=== PATIENT | female | born 1940 | race Caucasian/White ===

== ENCOUNTER → 2017-01-30 | Outpatient (CLI) | payer OTHER, BC ==
[~2017-01-30] MED LIST: ACETAMINOPHEN1 EAC2 PO; ACID CONTROL20 MG PO; ADVAIR HFA115 MCG/21 INH; AMBIEN 5 MG TABL5 M1 PO; ANCEF 1GM1 GM/50 M1 IVPB; ARAVA20 MG PO; ASPIR-LOW81 MG PO; AVINZA PO; B COMPLEX-VITA1 EACH PO; BACTRIM DS TAB1 EACH PO; CALCIUM 500 +1 EAC5 PO; CALCIUM 600 +1 EAC1 PO; CARVEDILOL3.125 MG PO; COLACE100 MG PO; CORAL CALCIUM1 EAC2 PO; CORAL CALCIUM1 EACH PO; CORAL CALCIUM1 GM PO; COUMADIN 1MG TAB1 M1 PO; CYMBALTA20 MG PO; DAPTOMYCIN IV; DICLOFENAC SODI25 MG PO; DICLOFENAC SODI75 M1 PO; DULCOLAX5 MG PO; DUONEB 2.5-0.5 M3 ML INH; ESTER-C 1,0001 EACH PO; FLONASE 0.05%50 MCG NASAL; FOLIC ACID0.4 MG PO; FOLIC ACID1 MG PO; HYDROCODON-ACE1 EAC5 PO; HYDROXYCHLOROQ200 M1 PO; IRON325 PO; K-DUR 20 MEQ T20 MEQ PO; LISINOPRIL2.5 MG PO; LORTAB 7.5-3251 EACH PO; MELATONIN1 MG PO; METHOTREXATE 22.5 M1 PO; MILK THISTLE1 GM PO; MILK THISTLE200 M1 PO; MORPHINE SULFAT30 M1 PO; MUCINEX TA600 MG/TA2 PO; MULTI VITAMIN1 EACH PO; MULTIVITAMINS1 EAC7 PO; NORCO 7.5-3251 EACH PO; OMEGA 3 1,0001 EACH PO; OMEPRAZOLE40 MG PO; ONE DAILY1 EAC2 PO; PEPCID AC20 MG PO; PEPCID40 MG PO; PHENTERMINE HCL30 MG PO; PREDNISONE 10 M10 MG PO; PREDNISONE 20 M20 MG PO; PREDNISONE 5 MG5 M1 PO; PRESERVISION L1 EACH; PRESERVISION L1 EACH PO; PRILOSEC 20 MG20 MG PO; PROBIOTIC1 EAC1 PO; PROLIA60 MG/1 ML; PROLIA60 MG/1 ML SUBQ; PROMETHEGAN25 MG RC; REMICADE 1100 MG/VIA; SALINE MIST45 ML NS; SENNA PO; SENOKOT-S1 TA1 PO; SUPRENZA ODT30 MG PO; TRAZODONE 150150 M1 PO; TRAZODONE HCL100 MG PO; TUDORZA PRESS400 MCG IH; TUMS PO; TYLENOL325 MG PO; VENTOLIN HFA 1818 GM INH; VITAMIN D31000 UNI2 PO; VITAMINC500 PO; [UNRECOGNIZED DRUG - OTHER] PO; [UNRECOGNIZED DRUG - OTHER] PO
== END ==
LOC: MRI 11:03
DX: M06.9 Rheumatoid arthritis, unspecified (principal); Z89.429 Acquired absence of other toe(s), unspecified side

== ENCOUNTER 2017-06-20 17:43 | Observation (INO) | payer OTHER, BC ==
[~2017-06-20] VITALS: Ht 160 cm; Wt 56.7 kg
[~2017-06-20 17:43] MED LIST changes: -XARELTO15 MG PO; -XARELTO20 MG PO
[2017-06-20 17:50] VITALS: BP 136/68
[2017-06-20 19:34] LABS: ABSOLUTE NEUTROPHILS 4.9 thou/uL (1.4-8.2); BASOPHILS 0.8 % (0.0-2.0); EOSINOPHILS 0.9 % (0.0-3.0); HEMATOCRIT 38.8 % (37.0-47.0); HEMOGLOBIN 12.8 gm/dL (12.0-15.0); LYMPHOCYTES 21.5 % (24.0-44.0); MCH 32.4 pg (26.0-34.0); MCHC 32.8 g/dL (28.0-37.0); MCV 98.6 fL (80.0-100.0); MONOCYTES 6.9 % (1.0-8.0); PLATELET COUNT 156 thou/uL (150-400); POLYS 69.9 % (36.0-66.0); RBC 3.94 mil/uL (4.20-5.00); RDW 15.1 % (10.5-14.5); WBC 7.1 thou/uL (4.0-11.0)
[2017-06-20 19:41] LABS: CALCIUM 8.6 mg/dL (8.5-10.1); CREATININE 0.6 mg/dL (0.6-1.0); MANUAL DIFF NO; POTASSIUM 5.2 mmol/L (3.5-5.1)
[2017-06-20 19:52] LABS: APTT 22.2 Seconds (24.5-32.8)
[2017-06-20 22:43] VITALS: BP 143/65
[2017-06-20 22:49] VITALS: BP 155/87
[2017-06-20 22:56] VITALS: BP 155/87
[2017-06-21 03:50] VITALS: BP 118/50
[2017-06-21 04:28] VITALS: BP 118/50
[2017-06-21 07:20] VITALS: BP 115/72
[2017-06-21] MEDS ORDERED: XARELTO15 MG PO (13:19)
[2017-06-21] MEDS ORDERED: XARELTO20 MG PO (13:21)
[2017-06-21 13:27] VITALS: BP 115/57
== END 2017-06-21 14:25 | disposition home or self-care (01) ==
LOC: ER 17:43 → 4S 21:29 → EROBS 21:29 → 4S 22:38 → ENTRNSPT 06-21 13:34 → EDTRNSPTSTS 06-21 13:44 → 4S 06-21 14:25
PROVIDERS: Emergency Medicine
DX: I82.402 Acute embolism and thrombosis of unspecified deep veins of left lower extremity (principal); M06.9 Rheumatoid arthritis, unspecified; G89.29 Other chronic pain; J44.9 Chronic obstructive pulmonary disease, unspecified; F17.210 Nicotine dependence, cigarettes, uncomplicated; I10 Essential (primary) hypertension; Z98.890 Other specified postprocedural states

== ENCOUNTER → 2017-06-20 | Outpatient (CLI) | payer OTHER, BC ==
[~2017-06-20] MED LIST changes: +XARELTO15 MG PO; +XARELTO20 MG PO
== END ==
LOC: ULTRA 15:47
DX: M79.89 Other specified soft tissue disorders (principal)

== ENCOUNTER → 2018-01-23 | Outpatient (CLI) | payer OTHER, BC ==
[~2018-01-23] MED LIST changes: +XARELTO15 MG PO; +XARELTO20 MG PO
== END ==
LOC: HYPER 01-09 16:39
DX: L89.512 Pressure ulcer of right ankle, stage 2 (principal); M86.8X7 Other osteomyelitis, ankle and foot; L60.3 Nail dystrophy; L84 Corns and callosities; L08.9 Local infection of the skin and subcutaneous tissue, unspecified; K21.9 Gastro-esophageal reflux disease without esophagitis; M79.671 Pain in right foot; M06.371 Rheumatoid nodule, right ankle and foot; M81.0 Age-related osteoporosis without current pathological fracture; J44.9 Chronic obstructive pulmonary disease, unspecified; F17.200 Nicotine dependence, unspecified, uncomplicated; Z96.642 Presence of left artificial hip joint; Z86.718 Personal history of other venous thrombosis and embolism; Z96.653 Presence of artificial knee joint, bilateral

== ENCOUNTER → 2018-02-18 | Outpatient (CLI) | payer OTHER, BC | LOC: HYPER 06:53 | DX: L89.512 Pressure ulcer of right ankle, stage 2 (principal); L60.3 Nail dystrophy; L84 Corns and callosities; M06.371 Rheumatoid nodule, right ankle and foot; L08.9 Local infection of the skin and subcutaneous tissue, unspecified; M06.30 Rheumatoid nodule, unspecified site; M86.8X7 Other osteomyelitis, ankle and foot; I77.1 Stricture of artery; K21.9 Gastro-esophageal reflux disease without esophagitis; J44.9 Chronic obstructive pulmonary disease, unspecified; M81.0 Age-related osteoporosis without current pathological fracture; F17.210 Nicotine dependence, cigarettes, uncomplicated; Z86.718 Personal history of other venous thrombosis and embolism; Z89.422 Acquired absence of other left toe(s) ==

== ENCOUNTER → 2018-04-14 | Outpatient (CLI) | payer OTHER, BC | LOC: HYPER 06:55 | DX: M89.512 Osteolysis, left shoulder (principal); M86.8X7 Other osteomyelitis, ankle and foot; L60.3 Nail dystrophy; L84 Corns and callosities; L08.9 Local infection of the skin and subcutaneous tissue, unspecified; M06.371 Rheumatoid nodule, right ankle and foot; M79.671 Pain in right foot; K21.9 Gastro-esophageal reflux disease without esophagitis; M81.0 Age-related osteoporosis without current pathological fracture; J44.9 Chronic obstructive pulmonary disease, unspecified; F17.200 Nicotine dependence, unspecified, uncomplicated; Z86.718 Personal history of other venous thrombosis and embolism; Z96.642 Presence of left artificial hip joint; Z96.653 Presence of artificial knee joint, bilateral ==

== ENCOUNTER → 2018-06-02 | Outpatient (CLI) | payer OTHER, BC | LOC: HYPER 07:09 | DX: L89.512 Pressure ulcer of right ankle, stage 2 (principal); L84 Corns and callosities; M86.9 Osteomyelitis, unspecified; R60.0 Localized edema; K21.9 Gastro-esophageal reflux disease without esophagitis; J44.9 Chronic obstructive pulmonary disease, unspecified; M81.0 Age-related osteoporosis without current pathological fracture; M06.371 Rheumatoid nodule, right ankle and foot; M06.9 Rheumatoid arthritis, unspecified; F17.200 Nicotine dependence, unspecified, uncomplicated; Z96.643 Presence of artificial hip joint, bilateral; Z86.73 Personal history of transient ischemic attack (TIA), and cerebral infarction without residual deficits ==

== ENCOUNTER → 2018-12-30 | Outpatient (CLI) | payer OTHER, BC | LOC: HYPER 12-19 06:46 | DX: L97.522 Non-pressure chronic ulcer of other part of left foot with fat layer exposed (principal); L08.9 Local infection of the skin and subcutaneous tissue, unspecified; L84 Corns and callosities; K21.9 Gastro-esophageal reflux disease without esophagitis; J44.9 Chronic obstructive pulmonary disease, unspecified; M86.9 Osteomyelitis, unspecified; M81.0 Age-related osteoporosis without current pathological fracture; M06.9 Rheumatoid arthritis, unspecified; F17.200 Nicotine dependence, unspecified, uncomplicated; Z96.642 Presence of left artificial hip joint; Z86.718 Personal history of other venous thrombosis and embolism ==

== ENCOUNTER 2019-01-19 06:36 | Inpatient (IN) | payer OTHER, BC ==
[~2019-01-19] VITALS: Ht 160 cm; Wt 52.6 kg
[2019-01-19 13:46] LABS: HEMOGLOBIN 11.6 gm/dL (12.0-15.0); MCH 24.9 pg (26.0-34.0); MCHC 31.3 g/dL (28.0-37.0); MCV 79.8 fL (80.0-100.0); RBC 4.64 mil/uL (4.20-5.00); RDW 18.4 % (10.5-14.5); WBC 6.3 thou/uL (4.0-11.0)
[2019-01-19 13:56] LABS: CREATININE 0.6 mg/dL (0.6-1.0); POTASSIUM 3.8 mmol/L (3.5-5.1)
[2019-01-19 14:01] LABS: ALBUMIN 3.2 g/dL (3.4-5.0); TOTAL BILIRUBIN 0.3 mg/dL (<0.1-1.0); TOTAL PROTEIN 7.7 g/dL (6.4-8.2)
[2019-01-19] MEDS ORDERED: NORCO 10-325 T1 EACH PO (14:05)
[2019-01-19] MEDS ORDERED: MORPHINE SULFAT20 M1 PO (14:07)
[2019-01-19] MEDS ORDERED: TRAZODONE HCL100 MG PO (14:08)
[2019-01-19] MEDS ORDERED: CARVEDILOL3.125 MG (14:09)
[2019-01-19] MEDS ORDERED: PREDNISONE 5 MG5 M1 PO (14:11)
[2019-01-19] MEDS ORDERED: LEFLUNOMIDE20 MG PO (14:13)
[2019-01-19] MEDS ORDERED: HYDROXYCHLOROQ200 M1 PO (14:14)
[2019-01-19] MEDS ORDERED: SULFASALAZINE500 M5 PO (14:15)
[2019-01-19] MEDS ORDERED: TUDORZA PRESS400 MCG INH (14:18)
[2019-01-19] MEDS ORDERED: CILOSTAZOL 100100 M1 PO (14:20)
[2019-01-19] MEDS ORDERED: PENICILLIN VK500 MG (14:20)
[2019-01-19] MEDS ORDERED: ACID REDUCER20 M1 (14:22)
[2019-01-19] MEDS ORDERED: CALCIUM WITH M1 EACH PO (14:23)
[2019-01-19] MEDS ORDERED: DULCOLAX5 MG (14:25)
[2019-01-19] MEDS ORDERED: PROBIOTIC1 EAC1 (14:25)
[2019-01-19] MEDS ORDERED: PRESERVISION L1 EACH (14:28)
[2019-01-19] MEDS ORDERED: MUCINEX600 MG PO (14:32)
[2019-01-19] MEDS ORDERED: MELATONIN 1 MG1 EACH PO (14:34)
[2019-01-19] MEDS ORDERED: ASPIR-LOW81 MG PO (14:35)
[2019-01-19] MEDS ORDERED: D3 DOTS2000 UNIT PO (14:36)
[2019-01-19 18:01] VITALS: BP 122/49
--- NOTE | 2019-01-19 18:53 | NUR ---
78 YO FEMALE DIRECTLY ADMITTED BY W/C FROM OFFICE. L FOOT HAS CLEANSED IN OFFICE PT WILL NEED IV ANTIBIOTICS. A&OX4, AMBULATES WITH EITHER A CANE OR OWN WALKER. HX OF RA. IV PLACED IN L UPPER ARM BY VASCULAR TEAM. PICS TAKEN OF FOOT. PT ORIENTED TO ROOM/CALL LIGHT.
[2019-01-19 19:18] VITALS: BP 156/77
[2019-01-19 19:27] VITALS: BP 109/52
--- NOTE | 2019-01-20 03:41 | NUR ---
Assumed pt care at 1900,pt is A/OX4,VSS.Pt had questions regarding Morphine order;the paperwork she submitted to ER stated 20mg but pt swore that's not the correct dosage. Vianca LEIVA contacted and did change the Hydrocodone order;pt stated she will f/u with [facility] pharmacy today to get current dosing on the morphine. Pt fall risk score is 75,fall safety education provided. Pt refused to have yellow/band/alarms on stating "I should have lied,tell them to come talk to me I'm a tough one"Pt however agrees to call for assistance before getting OOB.Charge nurse updated regarding the above. Pt was provided with a soft touch call light d/t RA,calling appropriately for help. Resting quietly with no distress noted. Will continue to monitor pt.
[2019-01-20 04:03] VITALS: BP 134/70
[2019-01-20 05:58] LABS: HEMATOCRIT 32.7 % (37.0-47.0); HEMOGLOBIN 10.4 gm/dL (12.0-15.0); MCH 25.4 pg (26.0-34.0); MCHC 31.7 g/dL (28.0-37.0); MCV 80.1 fL (80.0-100.0); RBC 4.08 mil/uL (4.20-5.00); RDW 18.3 % (10.5-14.5); WBC 4.6 thou/uL (4.0-11.0)
[2019-01-20 06:08] LABS: CALCIUM 8.6 mg/dL (8.5-10.1); CREATININE 0.6 mg/dL (0.6-1.0); MAGNESIUM 1.9 mg/dL (1.8-2.4); POTASSIUM 3.9 mmol/L (3.5-5.1)
[2019-01-20 06:09] LABS: APTT 26.6 Seconds (24.5-32.8); PROTIME 10.4 Seconds (9.3-11.4)
--- NOTE | 2019-01-20 10:20 | NUR ---
WOUND CARE CONSULT; ROUNDING TODAY WITH DR ANA DASILVA. A LEFT FOOT WOUND IDENTIFIED TO THE PLANTAR SURFACE. THE WOUND IS PAINFUL TO TOUCH. WOUND BED IS PINK. RECOMMENDATIONS; XEROFORM TO WOUND BED, COVER WITH GAUZE, SECURE WITH KERLIX CHANGE DAILY/PRN. DISCUSSED WITH MECHANICAL TECHNICIAN
--- NOTE | 2019-01-20 13:07 | NUR ---
WOUND CONSULT; ROUNDING WITH DR ANA DASILVA AND CASIE ARMSTRONG BSN RN. NO S/S OF INFECTION TO THE LEFT FOOT. RECOMMENDATIONS; GENTAMYCIN TO WOUND,COVER WITH XEROFORM, KERLIX DAILY/PRN DISCUSSED WITH RN
--- NOTE | 2019-01-20 13:31 | NUR ---
INITIAL ASSESSMENT: Pt evaluated for d/c planning needs. Reviewed chart and spoke with nurse and pt. Pt is alert and oriented. Pt states she lives alone in independent apartment and was independent with ADL's prior to admission to the hospital. Pt has walker, cane and scooter at home. Pt said she is currently on service with [facility]. Contacted [facility] to confirm. Pt plans on returning home on d/c from hospital. Will remain available to assist as needed.
--- NOTE | 2019-01-20 13:42 | NUR ---
WOUND CARE WITH GENTAMYCIN OINTMENT ORDERED AT THIS TIME.
[2019-01-20 15:33] VITALS: BP 147/46
[2019-01-20 19:12] VITALS: BP 131/72
--- NOTE | 2019-01-20 19:32 | NUR ---
PATIENT AT TIMES IS ARGUMENTIVE, STATES THAT PEOPLE ARE MEAN AND DONT LIKE HER. STATES DR ROGERS WHO SHE CALLS PRETTY BOY. IS NOT HER KIND AND SHE TOLD HIM HE COULD NOT BE HER DOCTOR. HER FRIEND AND SHE CALLS HER POWER OF AURELIANO WAS HERE. HE ASKED ME TO CALL [facility] THAT PATIENT WAS ON ANXIETY MED THIS NURSE CALLED AND THEN CALLED DR ROGERS SEE JACOB FOR XANAX AND MS CONTIN ORDERS. PT IS CONFUSED AND FORGETFUL AT TIMES.
--- NOTE | 2019-01-20 23:41 | NUR ---
ASSESSMENT COMPLETED. PT IS ALERT AND ORIENTED. [place]. SOME CONFUSION AND ANXIETY. C/O PAIN TO HELENE ARMS, LEGS AND BACK. PT NOT COMPLIANT WITH CALLING FOR HELP BEFORE GETTING UP. PT ALSO DOES NOT WANT BED ALARM ON. AFEBRILE.L FOOT WITH DRSG INTACT.WILL CONTINUE WITH POC TILL EOS.
[2019-01-21 04:25] VITALS: BP 151/81
--- NOTE | 2019-01-21 08:02 | HC ---
[facility] [place] [address] CONSULTATION Name: FATOUMATA JUNIOR Room #: 417-I ADM IN M.R.#: [id number] Admission: 01/19/19 ������������������ Attend Phys: Shayan Mccoy MD Discharge: ������������������ Date of : 40 Report #: [id number] THIS REPORT FOR: //name// CC: Kane Celis DATE OF SERVICE: 01/20/2019 HISTORY OF PRESENT ILLNESS: This is a 78-year-old female patient with history of rheumatoid arthritis, whom I am familiar with from the outpatient setting. I saw her in the clinic yesterday where she had had an abscess at the base of her fourth MTP. An incision and drainage was performed in the office. She was admitted for further evaluation and treatment. Cultures were obtained and are pending at this time. Past medical history is positive for history of rheumatoid arthritis. She has had multiple toe amputations. She has a significant hallux valgus deformity of the right great toe with a chronic draining sinus tract to the first MTP. The patient is feeling relatively well today, but is complaining of significant diarrhea, requesting Imodium. ALLERGIES: TETANUS IMMUNOGLOBULIN. MEDICATIONS: Include hydrocodone, morphine, trazodone, Coreg, leflunomide, Plaquenil, sulfasalazine, Tudorza, Pressair, penicillin, Pletal, omeprazole, Dulcolax, probiotic, multivitamin, Mucinex, melatonin, aspirin, cholecalciferol. PAST MEDICAL HISTORY: Positive for rheumatoid arthritis, degenerative arthritis, bilateral shoulder replacements, bilateral knee replacements, previous left hip fracture with left hip arthroplasty, cholecystectomy, appendectomy, osteoporosis, multiple debridements and amputations of the toes of the left foot, anemia, COPD. SOCIAL HISTORY: Positive for alcohol on special occasions. She is a current smoker with a [id number]-ggee history. FAMILY HISTORY: Positive for heart disease. REVIEW OF SYSTEMS: CONSTITUTIONAL: The patient denies fever, chills or weight loss. NEUROLOGICAL: The patient denies focal weakness, numbness or tingling. EYES: The patient denies visual changes, redness, or drainage. ENT: The patient denies earache, nasal drainage or sore throat. CARDIOVASCULAR: The patient denies chest pain, palpitations or diaphoresis. PULMONARY: The patient denies cough or shortness of breath. GASTROINTESTINAL: The patient denies nausea, vomiting, diarrhea, abdominal pain. [address] [address] CONSULTATION Name: SANDITORO Room #: 417-I ADM IN ..#: [id number] Admission: 01/19/19 ������������������ Attend Phys: Shayan Mccoy MD Discharge: ������������������ Date of : 40 Report #: [id number] ORTHOPEDIC: The patient does admit of some pain and drainage to her left foot. Other systems in a 14-point review of systems are negative. PHYSICAL EXAMINATION: VITAL SIGNS: At this time include pulse 73, respiratory rate 18, blood pressure 134/70, temperature 98.6. GENERAL: This is a chronically ill-appearing female male patient who appears to be in minimal distress. HEENT: Head is normocephalic. Nose and throat are clear. NECK: Supple. HEART: Regular rhythm, without murmur. ABDOMEN: Soft. Bowel sounds present. EXTREMITIES: Examination of the lower extremities demonstrate palpable distal pulses. She has a small sinus tract at the medial first MTP of the left foot that is not inflamed. There is a little bit of milky type fluid that can be expressed from the sinus tract. There is the ulceration on the plantar aspect of the left foot underneath the fourth MTP. There is a small sinus tract that was a larger area yesterday that is now contracted significantly. There is still a milky bit of fluid there. The ulceration previously at the site of a blister is showing new evidence of epithelization. LABORATORY DATA: Sodium 139, potassium 3.9, chloride 103, CO2 of 29, BUN 13, creatinine 0.6, glucose of 90, calcium is 8.6, magnesium is 1.9. Albumin is 3.2. White blood cell count 4.6 with hemoglobin 10.4, hematocrit 32.7. Sed rate is 50. CRP is 71.3. CT scan of the left lower extremity demonstrates transmetatarsal amputation of the second and third digits, circumferential periosteal reaction involving the distal one third of the first metatarsal concerning for osteomyelitis. There is chronic severe subluxation or dislocation of the proximal phalanx related to the severe hallux valgus. No note of any marrow changes or bony changes were made of the fourth MTP area. CLINICAL IMPRESSION: 1. Ulceration and abscess of the plantar aspect of the left foot. 2. Possible osteomyelitis versus rheumatoid arthritic changes to the left first MTP with chronic draining sinus tract. 3. Chronic obstructive pulmonary disease. 4. Hypertension. 5. Rheumatoid arthritis. 6. Peripheral vascular disease. RECOMMENDATION: At this point in time, cultures are pending at this time. She is on empiric antibiotic therapy. She has requested a dose of Imodium for diarrhea. I will prescribe for her one dose and if additional doses are required, we will have the hospitalist address this concern. It is difficult to discern. I think there is a good chance that there is some degree of osteomyelitis involving the first MTP, although clinically there is very little [address] [address] CONSULTATION Name: FATOUMATA JUNIOR Room #: 417-I ADM IN .R.#: [id number] Admission: 01/19/19 ������������������ Attend Phys: Shayan Mccoy MD Discharge: ������������������ Date of : 40 Report #: [id number] inflammatory change other than the small sinus tract, aggressive therapy would involve surgical intervention and amputation of the first digit. I have discussed this with the patient. She is reluctant to consider doing so, but will consider it. We will plan to discuss further with Dr. Thacker. We will continue with topical care to the plantar aspect of the foot at the fourth MTP region. There is no longer any room for packing as the area has contracted significantly, we will use some topical Xeroform gauze and gentamicin ointment. We will recommend aggressive nutritional support to maximize wound healing. I appreciate being asked to see her and follow her in the hospital. ��������������������������������������������� <ELECTRONICALLY SIGNED> ���������������������������������������� By: Shayan Mccoy MD ��������������������������������������������� 01/21/19 0802 1450 0349 Shayan Mccoy MD /nt
[2019-01-21 09:25] VITALS: BP 138/60
--- NOTE | 2019-01-21 16:27 | NUR ---
WOUND CARE FOLLOW UP; ROUNDING WITH DR ANA DASILVA TODAY. WOUND IS MUCH IMPROVED TODAY. NO NEED TO CHANGE ORDERS. DISCUSSED WITH RN
[2019-01-21 17:00] VITALS: BP 126/56
--- NOTE | 2019-01-21 19:08 | HC ---
[facility] [address] CONSULTATION Name: FATOUMATA JUNIOR Room #: 417-I ADM IN M.R.#: [id number] Admission: 01/19/19 ������������������ Attend Phys: Shayan Mccoy MD Discharge: ������������������ Date of : 40 Report #: [id number] THIS REPORT FOR: //name// CC: Kane Celis DATE OF SERVICE: 01/19/2019 REASON FOR CONSULTATION: I was asked to evaluate concerning the left foot soft tissue abscess and possible osteomyelitis. HISTORY OF PRESENT ILLNESS: A 78-year-old immunosuppressed for rheumatoid arthritis. She has had multiple toe and metatarsal head resections due to rheumatoid disease, chronic ulcerations and osteomyelitis. Over the last several months, she has been managed for a nonhealing wound to the medial aspect of her left first metatarsal. Cultures had revealed Corynebacterium. She has been on penicillin VK for chronic antibiotic suppression. The date of her last culture was on 11/24/2018 which revealed a Corynebacterium. She has had an evaluation by wound care service. Recommendation was for continued offloading and localized wound care. Imaging studies had revealed no bony cortical abnormalities. Over the last week, she has had increased swelling involving the plantar aspect of her left fifth metatarsal region. This was debrided in the outpatient clinic by Dr. Yu for a callus removal. Subsequently, she has developed purulent fluid drainage. This was further debrided by wound care service this morning and she was hospitalized for further IV antibiotic therapy pending cultures. No definite sinus tract to her joint or metatarsal head. No fever, chills or sweats. Has a fair amount of pain to the plantar aspect of her foot. ALLERGIES: TETANUS. DOXYCYCLINE WITH NAUSEA AND VOMITING. MEDICATIONS: As noted on OCT including penicillin VK. PAST MEDICAL HISTORY: Rheumatoid arthritis, osteomyelitis, anemia, gastroesophageal reflux, osteoporosis, COPD, DVT, right shoulder replacement, left total hip arthroplasty and bilateral total knee arthroplasties, cholecystectomy, appendectomy, left hand surgery, left third metatarsal osteomyelitis, status post ray resection, left second toe amputation. FAMILY HISTORY: Noncontributory. SOCIAL HISTORY: Former smoker, no significant alcohol intake. REVIEW OF SYSTEMS: Denies any cardiopulmonary, GI or complaints. [address] [address] CONSULTATION Name: FATOUMATA JUNIOR ANN Room #: 417-I ADM IN M.R.#: [id number] Admission: 01/19/19 ������������������ Attend Phys: Shayan Mccoy MD Discharge: ������������������ Date of : 40 Report #: [id number] neurologic issues. A 10-point review was negative other than what is described above with advanced rheumatoid arthritis. PHYSICAL EXAMINATION: VITAL SIGNS: Afebrile, hemodynamically stable. GENERAL: The patient had advanced rheumatoid arthritis changes in both hands and feet. She was thin. Hard of hearing. HEENT: Eyes, without scleral icterus. Mouth without mucositis. NECK: Supple. LUNGS: Clear. HEART: Regular, without murmur. ABDOMEN: Soft, nontender with no hepatosplenomegaly or mass. EXTREMITIES: With advanced rheumatoid arthritis. Left foot had eschar over a sinus tract medial aspect of her first metatarsal head with advanced displacement of her first digit point lateral. Hammertoe deformities, specifically #4 and #5 toes. There was a fairly large wound with granulation base. Extensive tissue loss in this region. No surrounding cellulitis. LABORATORY STUDIES: CRP 71. Hemoglobin 11, WBC 6.2, platelet count 297,000. ESR pending. CT scan of the foot transmetatarsal amputation of the second and third digits circumferential periosteal reaction involving the distal one third of the first metatarsal, concerning for osteomyelitis. Chronic severe subluxation or dislocation of the proximal phalanx of toe #1 related to severe hallux valgus. IMPRESSION: Soft tissue infection, possible osteomyelitis involving the distal aspect of her forefoot on the left. Also, a chronic sinus tract involving the medial aspect of the left first metatarsal with bony changes on CT scan. I suspect much of this is rheumatoid in nature. Cannot totally exclude infection at this point. RECOMMENDATIONS: We will continue current antibiotic program and wound care. We will await culture results. Switch the penicillin to ceftriaxone empirically. ��������������������������������������������� <ELECTRONICALLY SIGNED> ���������������������������������������� By: Armando Thacker MD ��������������������������������������������� 01/21/19 1908 1621 0325 Armando Thacker MD /nt
[2019-01-21 19:14] VITALS: BP 120/56
--- NOTE | 2019-01-22 03:38 | NUR ---
PATIENT ALERT AND ORIENTED X4. C/O PAIN X1, SCHEDULED MED GIVEN. DRESSING ON L FOOT D/I. SLEPT MOST OF NIGHT.
[2019-01-22 03:42] VITALS: BP 138/55
--- NOTE | 2019-01-22 04:46 | NUR ---
ASSUMED CARE AT 0430, RECEIVED REPORT FROM OFF-GOING NURSE. PT SLEEPING IN BED, VS STABLE, NO CONCERNS. WILL MONITOR UNTIL AM SHIFT CHANGE.
[2019-01-22 07:27] VITALS: BP 130/60
--- NOTE | 2019-01-22 10:34 | NUR ---
ASSUMED CARE OF PT AT 0700. ASSESSMENT CHARTED. A&O,X4. C/O CHRONIC ARTHRITIS PAIN, PAIN MEDS GIVEN ORDERED. PT LEFT IN STABLE CONDITION VIA WHEELCHAIR FOR MRI AT 10:35. WILL WAIT FOR RETURN.
--- NOTE | 2019-01-22 14:16 | NUR ---
WOUND CARE FOLLOW UP; ROUNDING WITH DR ANA DASILVA. FOOT SHOWS SIGNIFICANT HEALING. FRANCOISE DASILVA ISCUSSING PODATRY TO SEE TODAY AND CONSIDERING A TRANSMENT AMPUTATION. PATIENT IS POSITVE. CONT. CURRENT TX DISCUSSED WITH STAFF
[2019-01-22 15:28] VITALS: BP 114/55
[2019-01-22 19:20] VITALS: BP 105/44
[2019-01-23 05:05] VITALS: BP 154/58
[2019-01-23 09:52] VITALS: BP 138/62
--- NOTE | 2019-01-23 12:07 | NUR ---
WOUND CARE FOLLOW UP; WOUND ASSESSMENT REVEAL YELLOW FIBRNOUS AND OTHER NON VIABLE TISSUE IN THE LEFT FOOT METATARSAL AMPUTATION SITE. RECOMMENDATIONS; DR ANA DASILVA ORDERED TO D/C THE VAC AND APPLY 1/4 DAKINS SOAKED GAUZE TO WOUND BED, ABD, KERLIX DAILY/PRN DISCUSSED WITH HAO
[2019-01-23 14:49] VITALS: BP 138/62
--- NOTE | 2019-01-23 15:14 | NUR ---
ALERTED [facility] THaT WE ARE EXPECTING DC TODAY AND HH SERVICES WILL NEED TO BE RESUMED.
[2019-01-23] MEDS ORDERED: CEFDINIR300 MG PO ×2 (17:21→17:25)
[2019-01-23] MEDS ORDERED: GENTAMICIN 0.1%15 G2 TOP (17:21)
[2019-01-23 18:01] VITALS: BP 138/62
--- NOTE | 2019-01-23 19:28 | NUR ---
ASSUMED CARE OF PT AT 0700. ASSESSMENT CHARTED. A&O,X4. SOMETIMES FORGETFUL. C/O CHRONIC SHOULDER PAIN, PAIN MEDS GIVEN ORDERED. DRESSING CHANGE PERFORMED TODAY LEFT TOES. NEW DISCHARGE ORDERS THIS EVENING. NEW SCRIPTS GIVEN TO PT. IV REMOVED PRIOR TO LEAVING. PT GATHERED PERSONAL BELONGINGS INCLUDING PERSONAL WHEELCHAIR. FRIEND AT BEDSIDE TO PICK PATIENT UP AT MEDICAL MALL ENTRANCE. PT LEFT IN STABLE CONDITION VIA WHEECHAIR TRANSPORT AT 18:30. DISCHARGE INSTRUCTIONS/WOUND AND ID FOLLOW UP INFORMATION GIVEN TO PT. STATE NO QUESTION OR CONCERNS.
== END 2019-01-23 18:43 | disposition home health service (06) | DRG 540 ==
LOC: HYPER 06:36 → 4E 11:55 → ENTRNSPT 01-23 18:34 → 4E 01-23 18:43
PROVIDERS: ADMIT Internal Medicine
DX: M86.8X7 Other osteomyelitis, ankle and foot (principal); I51.81 Takotsubo syndrome; E44.0 Moderate protein-calorie malnutrition; L02.612 Cutaneous abscess of left foot; L03.032 Cellulitis of left toe; M06.9 Rheumatoid arthritis, unspecified; K21.9 Gastro-esophageal reflux disease without esophagitis; M81.0 Age-related osteoporosis without current pathological fracture; J44.9 Chronic obstructive pulmonary disease, unspecified; Z96.611 Presence of right artificial shoulder joint; Z96.642 Presence of left artificial hip joint; I73.9 Peripheral vascular disease, unspecified; F17.210 Nicotine dependence, cigarettes, uncomplicated; H35.30 Unspecified macular degeneration; H91.90 Unspecified hearing loss, unspecified ear; Z96.653 Presence of artificial knee joint, bilateral; L97.529 Non-pressure chronic ulcer of other part of left foot with unspecified severity; Z88.7 Allergy status to serum and vaccine; Z88.8 Allergy status to other drugs, medicaments and biological substances; Z86.718 Personal history of other venous thrombosis and embolism; Z90.49 Acquired absence of other specified parts of digestive tract; Z89.422 Acquired absence of other left toe(s); Z82.49 Family history of ischemic heart disease and other diseases of the circulatory system; Z68.20 Body mass index [BMI] 20.0-20.9, adult; Z79.82 Long term (current) use of aspirin; Z79.899 Other long term (current) drug therapy
CPT/HCPCS: 10783

== ENCOUNTER → 2019-01-30 | Outpatient (CLI) | payer OTHER, BC ==
[~2019-01-30] MED LIST changes: +ACID REDUCER20 M1; +CALCIUM WITH M1 EACH PO; +CARVEDILOL3.125 MG; +CEFDINIR300 MG PO; +CILOSTAZOL 100100 M1 PO; +D3 DOTS2000 UNIT PO; +DULCOLAX5 MG; +GENTAMICIN 0.1%15 G2 TOP; +LEFLUNOMIDE20 MG PO; +MELATONIN 1 MG1 EACH PO; +MORPHINE SULFAT20 M1 PO; +MUCINEX600 MG PO; +NORCO 10-325 T1 EACH PO; +PENICILLIN VK500 MG; +PROBIOTIC1 EAC1; +SULFASALAZINE500 M5 PO; +TUDORZA PRESS400 MCG INH
== END ==
LOC: HYPER 08:27
DX: L97.522 Non-pressure chronic ulcer of other part of left foot with fat layer exposed (principal); M86.9 Osteomyelitis, unspecified; L08.9 Local infection of the skin and subcutaneous tissue, unspecified; L84 Corns and callosities; I73.9 Peripheral vascular disease, unspecified; K21.9 Gastro-esophageal reflux disease without esophagitis; M06.9 Rheumatoid arthritis, unspecified; M81.0 Age-related osteoporosis without current pathological fracture; J44.9 Chronic obstructive pulmonary disease, unspecified; Z86.718 Personal history of other venous thrombosis and embolism; F17.200 Nicotine dependence, unspecified, uncomplicated

== ENCOUNTER → 2019-02-11 | Outpatient (CLI) | payer OTHER, BC | LOC: HYPER 06:40 | DX: L97.522 Non-pressure chronic ulcer of other part of left foot with fat layer exposed (principal); S91.001D Unspecified open wound, right ankle, subsequent encounter; L08.9 Local infection of the skin and subcutaneous tissue, unspecified; M86.9 Osteomyelitis, unspecified; L84 Corns and callosities; I77.1 Stricture of artery; K21.9 Gastro-esophageal reflux disease without esophagitis; M81.0 Age-related osteoporosis without current pathological fracture; J44.9 Chronic obstructive pulmonary disease, unspecified; F17.200 Nicotine dependence, unspecified, uncomplicated; Z86.718 Personal history of other venous thrombosis and embolism; X58.XXXD Exposure to other specified factors, subsequent encounter ==

== ENCOUNTER → 2019-03-13 | Outpatient (CLI) | payer OTHER, BC | LOC: HYPER 07:03 | DX: L97.522 Non-pressure chronic ulcer of other part of left foot with fat layer exposed (principal); L08.9 Local infection of the skin and subcutaneous tissue, unspecified; L02.612 Cutaneous abscess of left foot; L84 Corns and callosities; I77.1 Stricture of artery; K21.9 Gastro-esophageal reflux disease without esophagitis; M81.0 Age-related osteoporosis without current pathological fracture; M86.9 Osteomyelitis, unspecified; M06.9 Rheumatoid arthritis, unspecified; J44.9 Chronic obstructive pulmonary disease, unspecified; F17.200 Nicotine dependence, unspecified, uncomplicated; Z86.718 Personal history of other venous thrombosis and embolism ==

== ENCOUNTER → 2019-03-20 | Outpatient (CLI) | payer OTHER, BC | LOC: HYPER 06:49 | DX: L97.522 Non-pressure chronic ulcer of other part of left foot with fat layer exposed (principal); L08.9 Local infection of the skin and subcutaneous tissue, unspecified; L84 Corns and callosities; M86.9 Osteomyelitis, unspecified; K21.9 Gastro-esophageal reflux disease without esophagitis; J44.9 Chronic obstructive pulmonary disease, unspecified; M81.0 Age-related osteoporosis without current pathological fracture; M06.9 Rheumatoid arthritis, unspecified; F17.200 Nicotine dependence, unspecified, uncomplicated; Z86.718 Personal history of other venous thrombosis and embolism; Z96.642 Presence of left artificial hip joint ==

== ENCOUNTER → 2019-03-30 | Outpatient (CLI) | payer OTHER, BC | LOC: HYPER 07:15 | DX: L97.522 Non-pressure chronic ulcer of other part of left foot with fat layer exposed (principal); L08.9 Local infection of the skin and subcutaneous tissue, unspecified; L84 Corns and callosities; I77.1 Stricture of artery; K21.9 Gastro-esophageal reflux disease without esophagitis; M81.0 Age-related osteoporosis without current pathological fracture; M86.9 Osteomyelitis, unspecified; M06.9 Rheumatoid arthritis, unspecified; J44.9 Chronic obstructive pulmonary disease, unspecified; F17.200 Nicotine dependence, unspecified, uncomplicated; Z86.718 Personal history of other venous thrombosis and embolism ==

== ENCOUNTER → 2019-04-15 | Outpatient (CLI) | payer OTHER, BC | LOC: HYPER 07:04 | DX: L97.522 Non-pressure chronic ulcer of other part of left foot with fat layer exposed (principal); L08.9 Local infection of the skin and subcutaneous tissue, unspecified; L84 Corns and callosities; M86.9 Osteomyelitis, unspecified; J44.9 Chronic obstructive pulmonary disease, unspecified; K21.9 Gastro-esophageal reflux disease without esophagitis; M81.0 Age-related osteoporosis without current pathological fracture; M06.9 Rheumatoid arthritis, unspecified; F17.200 Nicotine dependence, unspecified, uncomplicated; Z96.642 Presence of left artificial hip joint ==

== ENCOUNTER → 2019-04-23 | Outpatient (CLI) | payer OTHER, BC | LOC: MRI 08:37 | DX: M86.172 Other acute osteomyelitis, left ankle and foot (principal); L97.522 Non-pressure chronic ulcer of other part of left foot with fat layer exposed; M20.12 Hallux valgus (acquired), left foot; S93.149A Subluxation of metatarsophalangeal joint of unspecified toe(s), initial encounter; X58.XXXA Exposure to other specified factors, initial encounter; Y93.89 Activity, other specified; Y92.89 Other specified places as the place of occurrence of the external cause; Y99.8 Other external cause status ==

== ENCOUNTER → 2019-05-06 | Outpatient (CLI) | payer OTHER, BC ==
[~2019-05-06] MED LIST changes: -ACID REDUCER20 M1; +ACID REDUCER20 M1 PO; +AZATHIOPRINE50 MG PO; -CARVEDILOL3.125 MG; -PROBIOTIC1 EAC1; +STIOLTO RESPIMAT4 GM INH
== END ==
LOC: HYPER 07:02
DX: L97.522 Non-pressure chronic ulcer of other part of left foot with fat layer exposed (principal); L08.9 Local infection of the skin and subcutaneous tissue, unspecified; M86.9 Osteomyelitis, unspecified; L84 Corns and callosities; I77.1 Stricture of artery; K21.9 Gastro-esophageal reflux disease without esophagitis; M81.0 Age-related osteoporosis without current pathological fracture; M06.9 Rheumatoid arthritis, unspecified; J44.9 Chronic obstructive pulmonary disease, unspecified; F17.200 Nicotine dependence, unspecified, uncomplicated; Z86.718 Personal history of other venous thrombosis and embolism

== ENCOUNTER 2019-05-13 06:27 | Inpatient (IN) | payer OTHER, BC ==
[~2019-05-13] VITALS: Ht 160 cm; Wt 50.8 kg
[2019-05-13 07:26] VITALS: BP 132/77
[2019-05-13 13:36] VITALS: BP 117/50
--- NOTE | 2019-05-13 16:05 | NUR ---
ASSESSMENT: CM REVIEWED CHART AND MET WITH PATIENT AT THE BEDSIDE. PT WAS ADMITTED FOR LEFT FOOT 4TH RAY AMPUTATION. PT REPORTS SHE LIVES AT [facility] [address] PT REPORTS THIS IS A FULLY INDEPENDENT APT. PT REPORTS SHE HAS A CANE/WALKER/SCOOTER AT HOME AND REPORTS USING HER SCOOTER ALOT. PT REPORTS HAVING A GRAB BAR AND SHOWER CHAIR. PT STATES THAT SHE IS CURRENTLY IN SERVICES WITH [facility] BUT IS UPSET THAT THEY ARE NOW JOINING WITH [facility] AND IS UNSURE SHE WANTS TO CONTINUE WITH [facility] AT DISCHARGE. PT IS WONDERING IF SHE WILL NEEDE IV ANBX AT DISCHARGE. PT REPORTS SHE DOES NOT DRIVE BUT STATES SHE HAS A FRIEND AT HER [employer] [place] WHO DOES. CM WILL CONTINUE TO FOLLOW TO ASSIST NEEDED. CM VERIFIED WITH [facility] THAT SHE IS CURRENTLY IN SERVICES.
[2019-05-13 16:17] VITALS: BP 139/67
--- NOTE | 2019-05-13 16:35 | NUR ---
Pt came to unit from [facility] approx 1330. A&ox4. Dressing on left foot c/d/i. Pain controlled with prn pain meds. Fall precautions in place. Pt calls appropriately. Will continue to monitor and assist with needs.
[2019-05-13 19:23] VITALS: BP 124/65
[2019-05-14 00:42] VITALS: BP 150/69
--- NOTE | 2019-05-14 01:54 | NUR ---
ASSUMED CARE OF PT @1900 PT ASSESSED AT START OF SHIFT WITH C/O PAIN IN LFT FOOT PAIN MEDS GIVEN ICE PACK IN PLACE AND DRESSING INTACT. FALL PREC IN PLACE AND CALL LIGHT WITHIN REACH WILL CONT WITH POC TILL EOS
[2019-05-14 03:05] VITALS: BP 169/63
[2019-05-14 05:41] LABS: HEMATOCRIT 31.7 % (37.0-47.0); HEMOGLOBIN 9.9 gm/dL (12.0-15.0)
[2019-05-14 06:01] LABS: POTASSIUM 4.9 mmol/L (3.5-5.1)
[2019-05-14 07:30] VITALS: BP 139/67
[2019-05-14 08:12] LABS: CALCIUM 8.7 mg/dL (8.5-10.1); CREATININE 0.6 mg/dL (0.6-1.0)
--- NOTE | 2019-05-14 09:20 | NUR ---
Nutrition: Seen per RD screening d/t findings of wound/infection. Admit: L foot 4th ray amputation with osteomyelitis per EMR. S/p toe amputation surgery 05/13. On a regular diet and ate 85% dinner last night. Reports very gradual wt loss, from 135# (02/2016), 125# (06/2017), to CBW 112# (05/2019). Lowest wt of 108#, thus healthy +4# gain recently. Reports she is doing better, but admits to lower appetite, worsened by summer heat and dislike of food at [facility]. Lots of recent life changes (moved in December, lost son in January). 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 RD recommends eating q 2-3 hrs for smaller more frequent po intake, add cottage cheese to fruit for heightened protein, and continue supplements 1-2x/day. Usually drinks up to 2 Boost a day, agreeable to Ensure BID at lunch and dinner. Low nutrition risk w/ interventions of supplement and education in place, plus recent wt gain trend. Anticipates discharge soon.
--- NOTE | 2019-05-14 14:44 | NUR ---
on-going assessment: CM REVIEWED CHART AND MET WITH PT AT THE BEDSIDE. PT IS TO HAVE HER DRAIN REMOVED TOMORROW. PT WORKED WITH [facility] AND THEY ARE RECOMMENDING HH AT DISCHARGE. CM DISCUSSED THIS WITH PATIENT SHE WAS CURRENT WITH [facility] PRIOR TO ADMISSION BUT STATES SHE WISHES TO CHANGE HH COMPANIES DUE TO STAFFING CHANGES. PT REPORTS SHE WANTS A REFERRAL SENT TO [facility] . CM NOTIFIED [facility] WHO STATES THEY WILL DISCHARGE HER FROM THEIR SERVICES. CM SENT A REFERRAL TO [facility] . CM WILL CONTINUE TO FOLLOW TO ASSIST NEEDED.
[2019-05-14 15:30] VITALS: BP 118/69
--- NOTE | 2019-05-14 16:04 | NUR ---
Assumed pt care at 7am.Pt in bed most of the time today.Assessment completed. vss.Pt was upset early this shift related to not being seen by hospitalist last night after surgery.Service recovery provided.Am meds given with breakfast and well tolerated.Pain med given per pt request after lunch. Complete pain relief noted.Pt ambulated in hallways with casino floorperson.Fair endurance noted.Dr Thacker here,order noted.Piv went bad and new one placed by iv team.Will continue to monitor.
[2019-05-14 21:04] VITALS: BP 139/65
--- NOTE | 2019-05-15 02:20 | NUR ---
ASSESSMENT COMPLETED.PT REF TO TAKE HER STOOL SOFTNERS AT HS.DRGS ON HER L FOOT C/D/I.UP WITH ASSIST X1 AND GAIT BELT TO THE BSC/SURGICAL BOOT.PT ABLE TO MAKE HER NEEDS KNOWN.FALL PRECAUTIONS IN PLACE,CALL LIGHT WITHIN REACH.
[2019-05-15 04:45] VITALS: BP 147/79
[2019-05-15 05:36] LABS: HEMATOCRIT 33.2 % (37.0-47.0); HEMOGLOBIN 10.3 gm/dL (12.0-15.0); MCH 23.8 pg (26.0-34.0); MCHC 31.1 g/dL (28.0-37.0); MCV 76.3 fL (80.0-100.0); RBC 4.35 mil/uL (4.20-5.00); RDW 19.5 % (10.5-14.5)
[2019-05-15 05:37] LABS: CALCIUM 8.7 mg/dL (8.5-10.1); CREATININE 0.5 mg/dL (0.6-1.0); POTASSIUM 4.4 mmol/L (3.5-5.1)
[2019-05-15 07:45] VITALS: BP 146/70
--- NOTE | 2019-05-15 08:02 | O ---
[place] [address] OPERATIVE REPORT Name: FATOUMATA JUNIOR ANN Room #: 420-P [facility] IN M.R.#: [id number] Admission: 05/13/19 ������������������ Attend Phys: Nicholas Lopez MD Discharge: ������������������ Date of : 40 Report #: [id number] THIS REPORT FOR: //name// CC: Kane Lopez DATE OF SERVICE: 05/13/2019 PREOPERATIVE DIAGNOSIS: Left foot fourth metatarsal osteomyelitis. POSTOPERATIVE DIAGNOSIS: Left foot fourth metatarsal osteomyelitis. PROCEDURE: Left foot fourth ray amputation. SURGEON: Dr. Nicholas Lopez. ANESTHESIA: General. ESTIMATED BLOOD LOSS: Minimal. DRAINS: No drains. TOURNIQUET TIME: 30 minutes. DESCRIPTION OF PROCEDURE: The patient was brought to the operating room where she was placed under general anesthesia. Once under adequate general anesthesia, her left lower extremity was prepped and draped in sterile manner. The extremity was elevated and tourniquet placed to 250 mmHg. A racquet shaped incision about the proximal phalanx of the fourth toe was made dissecting sharply down to the fourth metatarsal. Exposure of the metatarsal was then achieved and a sagittal saw was used to transect the metatarsal proximally in the foot, approximately 3 cm of the metatarsal was resected. This was then completely extracted and excised along with the fourth toe sharply with a 10 blade. Once completely removed, the plantar wound was debrided with a 15 blade and subsequently the wound was irrigated copiously with normal saline solution. It should be noted that upon entering the wound, cultures were taken. The wound was irrigated copiously and a [place] drain was then placed and the wound was closed with 3-0 nylon suture over the Madhu drain. The wound was dressed with Xeroform, 4 x 4s, and a sterile soft compressive dressing was placed. Tourniquet was let down at 30 minutes. Toes were pink and warm with good capillary refill. There were no complications from the procedure. The patient tolerated the procedure well and went to the recovery room without incident. ��������������������������������������������� <ELECTRONICALLY SIGNED> ���������������������������������������� By: Nicholas Lopez MD ��������������������������������������������� 05/15/19 0802 0920 0940 Nicholas Lopez MD /nt
--- NOTE | 2019-05-15 11:21 | NUR ---
Assumed pt care at 7am.Pt in bed resting and c/o left foot pain and seen by Dr Lopez. Hydrocodone 2 tabs given with relief.Assisted pt with tray set up at breakfast.Good appetite noted.Pt took some of her am meds and refused some. Dc order noted after seen by Dr Lopez this am.Pt will dc home with home health later this afternoon.No further c/o. Will continue to monitor.
--- NOTE | 2019-05-15 15:05 | HC ---
[place] [address] CONSULTATION Name: SANDITORO Room #: 420-P ADM IN M.R.#: [id number] Admission: 05/13/19 ������������������ Attend Phys: Nicholas Lopez MD Discharge: ������������������ Date of : 40 Report #: [id number] THIS REPORT FOR: //name// CC: Kane Lopez DATE OF SERVICE: 05/14/2019 INFECTIOUS DISEASES CONSULTATION REASON FOR CONSULTATION: I was asked to evaluate concerning left fourth metatarsal osteomyelitis. HISTORY OF PRESENT ILLNESS: The patient is a 78-year-old with underlying history of rheumatoid arthritis, who has had multiple issues with pressure wounds to the plantar aspect of her distal feet. She has had a nonhealing wound to the plantar aspect of her left fourth metatarsal head. 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 Our concern for some time has been rheumatoid nodules that I suspect are a precipitating factor. Despite offloading and antibiotic suppression, she has failed to improve and she underwent left fourth ray amputation by Dr. Nicholas Lopez on 05/13/2019. No intraoperative complications. Postoperatively, has been stable with pain under control. She has had multiple trials of immunotherapy and immunosuppression without benefit. She is now on low dose prednisone. ALLERGIES: TETANUS IMMUNOGLOBULIN. MEDICATIONS: As noted on her MAR, having received cefazolin. Other medications have included azathioprine and prednisone. PAST MEDICAL HISTORY: Osteomyelitis with multiple toe amputations, cardiomyopathy, gastroesophageal reflux, degenerative arthritis, rheumatoid arthritis, tobacco use, appendectomy, cholecystectomy, bilateral total knee arthroplasties, right shoulder replacement. FAMILY HISTORY: Noncontributory. SOCIAL HISTORY: She is a smoker. No significant alcohol intake. REVIEW OF SYSTEMS: No cardiopulmonary, GI or complaints. PHYSICAL EXAMINATION: VITAL SIGNS: Afebrile and hemodynamically stable. GENERAL: Alert and cooperative, in no acute distress. She had advanced rheumatoid arthritis changes. MOUTH: Without mucositis. [address] [place] [address] CONSULTATION Name: FATOUMTAA JUNIOR ANN Room #: 420-P [facility] IN [facility].#: [id number] Admission: 05/13/19 ������������������ Attend Phys: Nicholas Lopez MD Discharge: ������������������ Date of : 40 Report #: [id number] NECK: Supple. LUNGS: Clear. HEART: Regular, without murmur. ABDOMEN: Soft and nontender. EXTREMITIES: Left foot was in surgical wrap. Toes were warm to the touch. LABORATORY STUDIES: Reviewed. IMPRESSION AND PLAN: A 78-year-old with advanced rheumatoid arthritis and nonhealing wound with associated osteomyelitis of fourth metatarsal head, status post ray amputation. While awaiting culture results, she will be placed on ceftriaxone. We will continue her current immunosuppression with prednisone. Continue with offloading and wound care. We will determine final antibiotic recommendations and duration once cultures are back. ��������������������������������������������� <ELECTRONICALLY SIGNED> ���������������������������������������� By: Armando Thacker MD ��������������������������������������������� 05/15/19 [id number] [id number] Armando Thacker MD /mable
[2019-05-15 15:23] VITALS: BP 1139/65
[2019-05-15 15:41] VITALS: BP 1139/65
--- NOTE | 2019-05-15 15:46 | NUR ---
ON-GOING ASSESSMENT: CM REVIEWED CHART AND MET WITH PATIENT AT THE BEDSIDE. PT HAS ORDERS TO DISCHARGE HOME WITH HOME HEALTH ([facility] WAS HER CHOICE OF HH). [facility] HAS ACCEPTED PT AND CM FAXED D.C. ORDERS TO THEM AND NOTIFIED THEM THAT PATIENT IS COMING FOR OUTPATIENT ANBX HERE AT [facility] ON Saturday AND SATURDAY. CM SPOKE WITH JUAN MANUEL IN OUTPATIENT INFUSION WHO STATES SHE SPOKE WITH DR. CALLAHAN AND PATIENT IS TO COME IN THROUGH THE ER ON SATURDAY AND SATURDAY AND STATE SHE IS HERE FOR HER OUTPATIENT ANBX. PT IS THEN TO ENTER THROUGH THE MAIN ENTERANCE ON SATURDAY AND GO TO REGISTRATION WHO WILL BRING HER IN FOR HER ANBX. PT REQUESTED THAT SHE COMES IN THIS WEEKEND AROUND 3PM STATING THAT IS WHEN SHE HAS A RIDE AVAILABLE. SHAILA NOTIFIED JUAN MANUEL IN OUTPATIENT INFUSION WHO REPORTS THAT IS FINE. JUAN MANUEL INSTRUCTED THAT PT CONTACT THE ER AT [phone] AN HOUR OR SO BEFORE ARRIVAL SO THEY KNOW SHE IS COMING. PT IS TO GET CEFTRIAXONE 2GM IV Q DAY THROUGH SATURDAY AND THEN TO FOLLOW UP WITH DR. CALLAHAN ON SATURDAY. PT STATES SHE IS AWARE SHE NEEDS TO FOLLOW UP WITH DR. CALLAHAN ON SATURDAY. PT REPORTS NO FURTHER NEEDS FROM CM.
[2019-05-15] MEDS ORDERED: CEFTRIAXONE2 GM IV (15:47)
--- NOTE | 2019-05-15 17:09 | PATH ---
[facility] [address] [place] [address] PATHOLOGY RPT PROCEDURE Name: SANDITORO Room #: 420-P DIS IN M.R.#: [id number] ������������������ Admission: 05/13/19 ������������������ Date of : 40 Discharge: 05/15/19 Report #: [id number] Path Case #: [id number] [facility] Accession Number: [id number] . 01 Material submitted: . toe - LEFT FOURTH TOE. Modifiers: left, fourth . 01 Clinical history: . Other acute osteomyelitis, left ankle and foot . 02 Diagnosis: Toe, left fourth toe, amputation: - Marked acute osteomyelitis associated with osteonecrosis. - Inked margin showing viable uninvolved bone. (IUV:business dean; 05/15/2019) MBR 05/15/2019 1345 Local . 02 Electronically signed: . Winsome Lea MD, Pathologist NPI- [id number] . 01 Gross description: . The specimen is received in formalin, labeled "Fatoumata Cope, left fourth toe". Received is an amputated digit measuring 5.3 x 1.6 x 1.4 cm in greatest dimensions. The bone margin is covered and overlying soft tissue and is not discernible grossly. The surgical margin is inked black. The nail is present display in a pale armstrong and thickened appearance. The epidermal surface is pale armstrong and wrinkled in appearance with no grossly distinct nodules or lesions. Also received is an additional segment of bone displaying one blunt margin, consistent with transection, and the opposite margin is convex and jagged in appearance, measuring 3.8 x 1.4 x 0.8 cm in greatest mentions. The transected margin is inked black. An additional segment of skin is present measuring 2.8 x 1.8 x 1.2 cm with a circular defect measuring 1.2 x 1.0 cm. The specimen is submitted representatively as follows: . A1-A2 full-thickness longitudinal cross-section through amputated digit, from proximal to distal aspects, following decalcification A3-A4 full-thickness longitudinal cross-section of separately submitted mid segment bone submitted from transected to opposite aspects, following decalcification A5 medical service representative sections of separately submitted skin. (CAA; 05/14/2019) QAC/QAC 05/15/2019 1346 Local . 02 Pathologist provided ICD-10: M86.172, M87.[address] [address] PATHOLOGY RPT PROCEDURE Name: FATOUMATA COPE ANN Room #: 420-P DIS IN M.R.#: [id number] ������������������ Admission: 05/13/19 ������������������ Date of : 40 Discharge: 05/15/19 Report #: [id number] Path Case #: [id number] . 02 CPT . [id number], [id number] Specimen Comment: A courtesy copy of this report has been sent to Specimen Comment: [phone], . Specimen Comment: Report sent to / DR CASTILLO Performed at: [address] [id number] MD Freddy Montenegro MD Phone: [phone] Performed at: [address] [id number] MD Winsome Lea MD Phone: [phone]
--- NOTE | 2019-05-18 16:20 | NUR ---
SHAILA RECEIVED CALL AT 1607 FROM OUTPATIENT INFUSION STATING PT HAD CAME FOR HER OUTPATIENT INFUSION AND SPOKE WITH DR CALLAHAN WHO WANTS HER TO REMAIN ON IV ANBX BUT SWITCH TO ERTAPENEM 1GM DAILY AND PT WANTS TO LOOK INTO GETTING HOME INFUSION WITH HH INSTEAD OF COMING TO OUTPATIENT. OUTPATIENT INFUSION IS REQUESTING ASSISTANCE WITH THIS. SHAILA REACHED OUT TO [facility] TO CHECK PATIENTS COVERAGE FOR HOME INFUSION. SHAILA SPOKE WITH KERWIN AT [facility] WHO STATES SHE WILL CHECK PATIENTS BENEFITS AND GET BACK TO . OUTPATIENT INFUSION STATING SHE WILL RECEIVE HER FIRST DOSE THERE TOMORROW AND WOULD NOT NEED HOME IV ANBX UNTIL WED IF SHE QUALIFIES. SHAILA WILL CONTINUE TO FOLLOW.
== END 2019-05-15 16:15 | disposition home health service (06) | DRG 475 ==
LOC: OR 06:27 → TBA 06:28 → OR 14:07 → 4E 14:07 → OR 14:08 → 4E 05-15 16:15
PROVIDERS: Hospitalist; Nurse Practitioner; ADMIT Orthopaedic Surgery Foot and Ankle Surgery
PROC: 0Y6N0ZD Detachment at Left Foot, Partial 4th Ray, Open Approach (ICD-10-PCS; principal; 2019-05-13)
DX: M86.8X7 Other osteomyelitis, ankle and foot (principal); D62 Acute posthemorrhagic anemia; I42.9 Cardiomyopathy, unspecified; M87.9 Osteonecrosis, unspecified; I10 Essential (primary) hypertension; J44.9 Chronic obstructive pulmonary disease, unspecified; M06.9 Rheumatoid arthritis, unspecified; M81.0 Age-related osteoporosis without current pathological fracture; K21.9 Gastro-esophageal reflux disease without esophagitis; M19.90 Unspecified osteoarthritis, unspecified site; F32.9 Major depressive disorder, single episode, unspecified; Z96.653 Presence of artificial knee joint, bilateral; Z96.611 Presence of right artificial shoulder joint; Z89.421 Acquired absence of other right toe(s); Z88.7 Allergy status to serum and vaccine; Z90.49 Acquired absence of other specified parts of digestive tract; Z82.49 Family history of ischemic heart disease and other diseases of the circulatory system; Z79.82 Long term (current) use of aspirin; Z86.718 Personal history of other venous thrombosis and embolism; Z79.899 Other long term (current) drug therapy
CPT/HCPCS: 10783; 50010; 50101; 50386; 50951; 56527; 57091; 57178; 62110; 62900; 70005

== ENCOUNTER → 2019-05-16 | Outpatient (CLI) | payer OTHER, BC ==
[~2019-05-16] MED LIST changes: +CEFTRIAXONE2 GM IV
== END ==
LOC: OPONC 15:30
DX: M86.8X7 Other osteomyelitis, ankle and foot (principal)
CPT/HCPCS: 95000; 95113

== ENCOUNTER → 2019-05-17 | Outpatient (CLI) | payer OTHER, BC | LOC: OPONC 15:30 | DX: M86.8X7 Other osteomyelitis, ankle and foot (principal); M06.9 Rheumatoid arthritis, unspecified | CPT/HCPCS: 95000 ==

== ENCOUNTER → 2019-05-18 | Outpatient (CLI) | payer OTHER, BC ==
--- NOTE | ~2019-05-18 | HC ---
[facility] [place] [address] CONSULTATION Name: FATOUMATA JUNIOR [id number] Admission: 05/18/19 ������������������ Attend Phys: Armando Thacker MD Discharge: ������������������ Date of : 40 Report #: [id number] THIS REPORT FOR: //name// CC: Armando Kimble DATE OF SERVICE: 05/18/2019 INFECTIOUS DISEASE FOLLOWUP VISIT LOCATION: Outpatient Infusion Clinic HISTORY OF PRESENT ILLNESS: The patient returns in followup of her right fourth metatarsal head osteomyelitis in the setting of rheumatoid arthritis. She is now postoperative day #5 from ray amputation. She was discharged on ceftriaxone pending culture results. Operative report was reviewed. There was no evidence of abscess. Amputation margins were clean. Pathology report confirms this along with diagnosis of osteonecrosis and evidence of osteomyelitis. Culture results for bacterial pathogens were negative. The patient has tolerated ceftriaxone well. She has a peripheral IV in place. We were awaiting culture results before embarking on her final program for outpatient infusion. Denies any fever, chills or sweats. No nausea, vomiting or diarrhea. No dysuria or frequency. Her chronic rheumatoid arthritis symptoms remained stable. PHYSICAL EXAMINATION: GENERAL: She was afebrile and hemodynamically stable. She has a peripheral IV in place. MUSCULOSKELETAL: She had changes of advanced rheumatoid arthritis. SKIN: The right fourth metatarsal incision was well approximated. There was minimal drainage. There was mild surrounding erythema without evidence of fluctuance. LABORATORY STUDIES: Pathology and culture results as noted above. Hemoglobin 10.2, WBC 6.5, platelet count 249,000. Sodium 140, potassium 4.2, bicarbonate 26, creatinine 0.7. Liver function test normal. Albumin of 2.9. IMPRESSION: Postoperative ray amputation, right fourth toe, for underlying rheumatoid arthritis with osteonecrosis and surrounding osteomyelitis which was culture negative. 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 This may all be reactive to her rheumatoid arthritis with rheumatoid nodule developing ulceration. I would still like to cover bacterial pathogens due to the extensive disease process in [facility] [address] [place] [address] CONSULTATION Name: FATOUMATA JUNIOR Room #: REG [facility] Treviño#: [id number] Admission: 05/18/19 ������������������ Attend Phys: Armando Thacker MD Discharge: ������������������ Date of : 40 Report #: [id number] her foot. RECOMMENDATIONS: We will continue her IV antibiotic therapy with ertapenem to maintain once daily dosing. In discussing with the patient, she notes that she did not tolerate metronidazole, which would have been an option to use with the ceftriaxone. Because of this, we will switch her antibiotics to ertapenem 1 gram IV q. 24 hours. We will have Jewel Sawyer run this order and see what insurance will pickle processor. We will then make final decision regarding her place of outpatient infusion. Options would include coming into [facility] versus doing it at her home versus going into a rehabilitation center. The patient was desiring to do the antibiotics at home. We will follow weekly laboratory studies and see her in the Infectious Disease Clinic or Outpatient Infusion Clinic at [facility]. ��������������������������������������������� ���������������������������������������� By: ��������������������������������������������� [id number] Armando Thacker MD /nt
[2019-05-18 14:56] LABS: HEMOGLOBIN 10.2 gm/dL (12.0-15.0); MCH 23.7 pg (26.0-34.0); MCHC 30.9 g/dL (28.0-37.0); MCV 76.7 fL (80.0-100.0); RBC 4.3 mil/uL (4.20-5.00); RDW 19.6 % (10.5-14.5); WBC 6.5 thou/uL (4.0-11.0)
[2019-05-18 15:21] LABS: ALBUMIN 2.9 g/dL (3.4-5.0); CALCIUM 8.3 mg/dL (8.5-10.1); CREATININE 0.7 mg/dL (0.6-1.0); POTASSIUM 4.2 mmol/L (3.5-5.1); TOTAL BILIRUBIN 0.1 mg/dL (<0.1-1.0); TOTAL PROTEIN 6.3 g/dL (6.4-8.2)
[2019-05-18 17:06] VITALS: BP 143/59
--- NOTE | 2019-05-18 17:09 | NUR ---
IN FOR CEFTRIAXONE INFUSION AND TO SEE DR. CALLHAAN. TOLERATED INFUSION WITHOUT DIFFICULTY. DR. CALLAHAN VISITED. INCISION TO LEFT FOOT AMPUTATION SITE WELL APPROXIMATED WITH NO DRAINAGE. MILDLY PINK. DENIED PAIN, N/V, DIARRHEA, FEVER/CHILLS. NEW ORDERS WRITTEN. NOTIFIED SHAILA OBRIEN REGARDING SEEING IF PATIENT QUALIFIES FOR HOME INFUSIONS OR CAN GO TO [facility] FOR INFUSIONS. PATIENT RESIDES IN INDEPENDENT LIVING AT [facility]. AWAITING RETURN CALL. SALINE LOCKED IV AND LEFT IN. PATIENT TO RETURN TOMORROW FOR PICC LINE AND 1ST DOSE OF ERTAPENEM. DISMISSED IN STABLE CONDITION.
== END ==
LOC: OPONC 11:07
PROVIDERS: Specialist
DX: M86.8X7 Other osteomyelitis, ankle and foot (principal)
CPT/HCPCS: 95000

== ENCOUNTER → 2019-05-19 | Outpatient (CLI) | payer OTHER, BC ==
--- NOTE | 2019-05-19 14:05 | NUR ---
VASCULAR ACCESS CONSULTED FOR PICC PLACEMENT.PT'S LABS,MEDS,HISTORY,ORDER AND CONSENT VERIFIED. PASCALE CHICAS WIDELY PATENET WITH USG. SL POWER PICC TRIMMED TO 44CM INSERTED PER HOSPITAL P&P TO 0CM. STAT CXR ORDERED.WALLET CARD GIVEN TO PT
--- NOTE | 2019-05-19 14:39 | NUR ---
PICC WITHDREW 2CM PER CXR REPORT. DRESSING REAPPLIED AND PICC RELEASED PER PROTOCOL TO [facility] FOR IMMEDIATE USE
[2019-05-19 16:05] VITALS: BP 118/56
--- NOTE | 2019-05-19 16:21 | NUR ---
IN FOR PICC PLACEMENT AND 1ST DOSE IV ERTAPENEM. SONIA FROM IV TEAM PLACED SINGLE LUMEN PICC IN LEFT UPPER ARM BASILIC. CXR CONFIRMED PROPER PLACEMENT. RECEIVED GOOD BLOOD RETURN AND FLUSHED EASILY. TOLERATED ERTAPENEM WITHOUT INCIDENT. PERIPHERAL IV IN RIGHT FOREARM REMOVED. TO RETURN TOMORROW FOR NEXT INFUSION. PLAN IS TO TRY TO SET UP HOME INFUSIONS.
== END ==
LOC: OPONC 00:49
DX: M86.8X7 Other osteomyelitis, ankle and foot (principal); M06.9 Rheumatoid arthritis, unspecified
CPT/HCPCS: 27000; 95000

== ENCOUNTER → 2019-05-20 | Outpatient (CLI) | payer OTHER, BC ==
[2019-05-20 13:50] VITALS: BP 138/62
--- NOTE | 2019-05-20 15:00 | NUR ---
PT IN FOR DAILY IV ERTAPENEM INFUSION. VERY UPSET THAT SHE HAS BEEN ASKED TO COME OUT DAILY FOR INFUSION WHEN SHE CANNOT DRIVE. ADAMANTLY WANTS TO PURSUE HOME INFUSIONS. VERIFIED WITH CONDOMINIUM MANAGER THAT ALL INFO SENT TO [facility] FOR THIS REQUEST. HAO SURESH WITH [facility] CAME TO THE INFUSION CLINIC THIS AFTERNOON TO PURSUE THIS REQUEST AND PT HAS DECIDED ON HOME THERAPY. TEACHING DONE BY KERWIN. ORDERS GIVEN TO KERWIN AND SHE STATES [facility] WILL TAKE IT FROM HERE. NO FURTHER NEED FOR SERVICES IN THE INFUSION CLINIC AT [facility]. PT AGREEABLE TO PLAN. DISMISSED IN STABLE CONDITION WITH HER FRIEND.
--- NOTE | 2019-05-20 16:29 | NUR ---
RECEIVED WORD FROM YOLANDA WITH DR. HUBER MARSH THAT PT IS OK'D TO STOP HER PREDNISONE AND HER AZITHIORINE. MESSAGE GIVEN TO DR. CALLAHAN THIS AM BUT I DID NOT LET PT KNOW DURING HER VISIT HER VISIT HERE WAS FILLED WITH GETTING HOME HEALTH SET UP. PT DID MAKE A COMMENT UPON ARRIVAL THAT SHE PRETTY MUCH STOPPED TAKING ALL OF HER MEDS BECAUSE SHE DIDN'T KNOW WHAT TO TAKE. LEFT MESSAGE AT THIS TIME WITH [facility] SURESH, AT [phone], TO SEE IF THE HOME HEALTH NURSE CAN PLEASE REVIEW PT'S HOME MEDS WITH HER ON THE NEXT VISIT AND TO LET HER KNOW THAT THE PREDNISONE AND AZITHIORINE CAN BE STOPPED. WILL TRY TO F/U AGAIN TOMORROW.
== END ==
LOC: OPONC 01:26
DX: M86.8X7 Other osteomyelitis, ankle and foot (principal)
CPT/HCPCS: 95000

== ENCOUNTER → 2019-08-19 | Outpatient (CLI) | payer OTHER, BC | LOC: ULTRA 15:28 | DX: I82.402 Acute embolism and thrombosis of unspecified deep veins of left lower extremity (principal) ==